=== PATIENT | female | born 1970 | race Caucasian/White ===

== ENCOUNTER → 2021-02-11 | Outpatient (CLI) | payer SELFPAY | LOC: KOH-I 10:01 | DX: M79.671 Pain in right foot (principal) | CPT/HCPCS: 73630 ==

== ENCOUNTER → 2021-06-08 | Outpatient (CLI) | payer MEDICAID | LOC: KOH-I 08:07 | DX: M72.2 Plantar fascial fibromatosis (principal); M77.31 Calcaneal spur, right foot | CPT/HCPCS: 73718 ==